=== PATIENT | female | born 1965 | race Caucasian/White ===

== ENCOUNTER → 2017-09-07 06:40 | Outpatient (CLI) | payer MEDICAID, SELFPAY ==
--- NOTE | 2017-09-07 06:43 | NM_ITS ---
CARDIOLITE SPECT MYOCARDIAL PERFUSION SCAN, REST AND STRESS: EXERCISE STRESS [facility] REVIEW QGS EF AND WALL MOTION EVALUATION: QPS - PERFUSION EVALUATION HISTORY: HTN, Tobacco use DOSE: 10.55 mCi technetium 99m mibi intravenously at rest followed by 32.6 mCi technetium 99m mibi following the intravenous ministration of 0.4 mg of Lexiscan. Resting blood pressure is 101/54. Stress blood pressure 110/56. FINDINGS: Ejection fraction is calculated to be 76%. Stress images reveal severely decreased activity in the anterior wall and septum while rest images reveal moderate to severely decreased activity in the anterior septum. Gated images calculated ejection fraction is 76% with normal wall motion. IMPRESSION: Clinical correlation is advised. It is possible this test is consistent with breast attenuation. There is a significant impressive anterior defect which is worse with stress and does improve with rest also suggesting some degree of anterior ischemia. Normal ejection fraction normal wall motion
--- NOTE | 2017-09-07 06:54 | CA_ITS ---
PROCEDURE: 2-D M-mode and color Doppler study INDICATIONS FOR THE TEST: Chest pain COPDX Heart Murmur Tobacco SmokingX Palpitations Fatigue Syncope Edema Hypertension Diabetes Mellitus Rheumatic Fever SOBXDOE ObesityXHyperlipidemia Family History HD Additional History PATIENT INFORMATION HEIGHT: 61 WEIGHT:198 GENDER: Female B/P:101/54 2-D/M-MODE INTERPRETATION: 2-D MEASUREMENTS OBSERVED VALUES IN CMS Right Ventricular Dimension (RVDd) 2.2 Interventricular Septum (Thickness)(IVsd) .9 Left Ventricular Internal Dimensions(LVIDd) 4.6 Left Ventricular Posterior Wall (Thickness)(LVPWd) .9 Aortic Root 2.9 Aortic Cusp Separation 1.6 Left Atrial Dimensions (LAD) 3.2 2D 1. Left atrium is mildly enlarged, left ventricle is normal size, there is no concentric left ventricular hypertrophy, visually estimated ejection fraction 55% with no obvious regional wall motion abnormality. 2. The right atrium and right ventricle are mildly enlarged with normal contractility. 3. The aortic valve is minimally thickened and fibrosed. 4. The mitral and tricuspid valve are grossly normal. 5. The pulmonic valve is poorly visualized. 6. No significant pericardial effusion noted. DOPPLER INTERROGATION: Doppler interrogation of the aortic, mitral and tricuspid valvular presence of mild mitral and tricuspid regurgitation, tricuspid and jet velocity insufficient for calculation of the right ventricular systolic pressure, diastolic parameters are within normal range. CONCLUSION: 1. Mildly enlarged left atrium, normal left ventricular size, visually estimated ejection fraction 55% with no obvious regional wall motion abnormality, diastolic parameters are within normal range. 2. Mildly enlarged right atrium and right ventricle, contractility of the right ventricle is normal. 3. Mild mitral and tricuspid regurgitation 4. No significant pericardial effusion noted.
--- NOTE | 2017-09-07 09:20 | HMH.ITSHM ---
trazodone pentoxifylline hydroxyzine paroxetine asa lisinopril pravastatin amtriptylin metoprolol
[2017-09-07 15:12] LABS: Amphetamine/Metha Screen,Urine Negative ng/mL (<1000); Barbiturates Screen,Urine Negative ng/mL (<200); Benzodiazepines Screen,Urine Negative ng/mL (200); Cannabinoid Screen,Urine Positive ng/mL (<50); Cocaine Screen,Urine Negative ng/g (<300); Methadone Screen,Urine Negative ng/mL (<300); Opiate Screen,Urine Negative ng/mL (<300); Phencyclidine Screen,Urine Negative ng/mL (<25)
== END ==
PROVIDERS: Family Provider Emergency Medicine; PCP Nurse Practitioner Family; Visit Provider Internal Medicine Cardiovascular Disease
DX: I73.9 Peripheral vascular disease, unspecified (principal); R06.09 Other forms of dyspnea; F17.200 Nicotine dependence, unspecified, uncomplicated
CPT/HCPCS: 78452; 80305; 93017; 93306; A9502; J2785

== ENCOUNTER → 2017-09-07 14:24 | Outpatient (CLI) | payer MEDICAID, SELFPAY | PROVIDERS: Visit Provider Nurse Practitioner Family | DX: Y99.9 Unspecified external cause status (principal) | CPT/HCPCS: 80305 ==

== ENCOUNTER 2017-10-12 07:23 | Day surgery (SDC) | payer MEDICAID, SELFPAY ==
[2017-10-12] VITALS (12 sets, daily range): BP systolic 81–105; BP diastolic 45–66; PULSE 62–85; RESP 16–18; TEMP 36.6; O2SAT 92–97; BMI 37.5
--- NOTE | 2017-10-12 | IR_ITS ---
CARDIAC CATHETERIZATION DATE OF CATHETERIZATION:10/12/2017 9:08 AM PROCEDURES: 1. Left heart catheterization 2. Left ventriculogram 3. Selective coronary angiogram INDICATION FOR TEST: 1. Abnormal Myoview anterior ischemia 2. Risk factors for coronary artery disease 3. Angina pectoris class III and IV Informed consent was obtained prior to the procedure. COMPLICATIONS: None ESTIMATED BLOOD LOSS: Less than 10 ml. TECHNIQUE: One percent lidocaine used to anesthetize the right anterior aspect of the wrist. The right radial artery was accessed via the Seldinger technique. A 6 Portuguese sheath was placed in the right radial artery. 2.5 mg of verapamil, 800 mcg of nitroglycerin and 5000 U Heparin were given through the arterial sheath. The trap catheter was also used to perform left heart catheterization and left ventriculography. At the end of the procedure the patient was transferred to the post-op holding area in stable condition for arterial sheath removal. ANGIOGRAPHIC RESULTS: 1. The left main artery normal 2. The left anterior descending artery is proximally normal. There is a distal 70% concentric stenosis at a 2.25 mm segment approximately 3 cm prior to the LAD wrapping the apex. 3. The circumflex artery is nondominant yet still a large system which gives rise to a moderate sized ramus intermedius which has mid vessel 40% stenoses. The circumflex artery has 30 and 40% stenoses in a large joint half millimeter second obtuse marginal artery 4. The right coronary artery is a dominant vessel and has long proximal to mid vessel 30% stenoses with a distal mostly concentric 50% stenosis followed by an additional distal 50% stenosis 5. The SINGER ventriculogram reveals normal 65% 6. The left ventricular end-diastolic pressure 15 mmHg IMPRESSION: 1. 70% stenosis in the distal 25% of the LAD 2. 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 Normal ejection fraction with mildly elevated LVEDP PLAN: 1. Patient continues to smoke and is strongly recommended she discontinue all tobacco exposure 2. LDL less than 55 3. Maximize antianginal medications. 4. I am very hesitant to stent the distal LAD given her young age and prior to her being maximize antianginal medications. The patient continues to have recalcitrant angina after tobacco cessation and maximizing her antianginal medications we can then consider stenting the distal LAD. 5. Weight-loss with aggressive risk factor modification 6. Physical therapy
[2017-10-12 08:06] LABS: Basophils # 0.1 K/mm3 (0-0.2); Basophils % 0.7 % (0.1-2.0); Eosinophils # 0.5 K/mm3 (0.0-0.4); Eosinophils % 3.9 % (0.1-12.0); Hemoglobin 14.5 g/dL (12.2-16.2); Lymphocytes # 3.4 K/mm3 (0.7-4.5); Lymphocytes % 26.3 K/mm3 (10-50); Mean Corpuscular Hemoglobin 31.8 pg (27.0-31.2); Mean Corpuscular Volume 96.4 fl (81-99); Mean Platelet Volume 8.5 fl (7.4-10.4); Monocytes # 0.6 K/mm3 (0.1-1.0); Monocytes % 4.8 % (1.7-9.3); Neutrophils # 8.4 K/mm3 (1.8-7.8); Neutrophils % 64.4 % (37.0-80.0); Platelet Count 370 K/mm3 (142-424); Red Blood Count 4.56 M/mm3 (4.20-5.40); Red Cell Distribution Width 13.3 % (11.5-17.5)
[2017-10-12 08:07] LABS: Anion Gap 11.8 mEq/L (5-15); Blood Urea Nitrogen 32 mg/dL (7-18); Carbon Dioxide 28 mmol/L (21.0-32.0); Chloride 104 mmol/L (98-107); Creatinine Clearance Estimated 58 mL/min (0-300); Creatinine,Serum 1.68 mg/dL (0.55-1.02); Estimated Glomerular Filt Rate 32 ml/min (>60); GFR (African American) 39 ML/MIN (>60); Glucose 92 mg/dL (74-106); Potassium 3.8 mmoL/L (3.5-5.1); Sodium 140 mmol/L (136-145)
== END 2017-10-12 12:45 | disposition home or self-care (01) ==
LOC: CATHLAB 07:23
PROVIDERS: Family Provider Emergency Medicine; PCP Nurse Practitioner Family; Visit Provider Internal Medicine
DX: I25.110 Atherosclerotic heart disease of native coronary artery with unstable angina pectoris; R94.30 Abnormal result of cardiovascular function study, unspecified; Z72.0 Tobacco use; I10 Essential (primary) hypertension; J44.9 Chronic obstructive pulmonary disease, unspecified
CPT/HCPCS: 80048; 85025; 93458; 99152; C1725; C1769; J1644; Q9967

== ENCOUNTER → 2017-10-19 13:53 | Outpatient (CLI) | payer MEDICAID, SELFPAY ==
[2017-10-19 15:14] LABS: Amphetamine/Metha Screen,Urine Negative ng/mL (<1000); Barbiturates Screen,Urine Negative ng/mL (<200); Benzodiazepines Screen,Urine Negative ng/mL (200); Cannabinoid Screen,Urine Positive ng/mL (<50); Cocaine Screen,Urine Negative ng/g (<300); Methadone Screen,Urine Negative ng/mL (<300); Opiate Screen,Urine Negative ng/mL (<300); Phencyclidine Screen,Urine Negative ng/mL (<25)
== END ==
PROVIDERS: Visit Provider Nurse Practitioner Family
DX: Z79.899 Other long term (current) drug therapy (principal)
CPT/HCPCS: 80305

== ENCOUNTER → 2017-12-01 11:18 | Outpatient (CLI) | payer MEDICAID, SELFPAY ==
[2017-12-01 19:48] LABS: Amphetamine/Metha Screen,Urine Negative ng/mL (<1000); Barbiturates Screen,Urine Negative ng/mL (<200); Benzodiazepines Screen,Urine Negative ng/mL (200); Cannabinoid Screen,Urine Positive ng/mL (<50); Cocaine Screen,Urine Negative ng/g (<300); Methadone Screen,Urine Negative ng/mL (<300); Opiate Screen,Urine Negative ng/mL (<300); Phencyclidine Screen,Urine Negative ng/mL (<25)
== END ==
PROVIDERS: Visit Provider Nurse Practitioner Family
DX: Z79.899 Other long term (current) drug therapy (principal)
CPT/HCPCS: 80305

== ENCOUNTER → 2018-12-11 14:08 | Outpatient (CLI) | payer MEDICAID, SELFPAY ==
--- NOTE | 2018-12-11 14:10 | US_ITS ---
US Arterial Ankle Brachial Ind History: ITS.REASON: claudication, pain, claudication, current smoker ORDERING PHYSICIAN: Fransisco Borja MD PATIENT AGE: 53 years TECHNIQUE: Segmental pressures obtained of both right and left leg. These are compared to brachial blood pressure to yield index at each level sampled including summary BHUPENDRA. The data sheets from the procedure are available in PACS FINDINGS Rest study only performed today No prior studies available for comparison. Blood pressures reported are in millimeters mercury. RIGHT LEG BHUPENDRA = 1.0. RIGHT LEG TBI=.8 Brachial BP: 114 Thigh BP: 117 Calf BP: 107 Ankle PT: 116 Ankle DP : 108 Digit =89 LEFT LEG BHUPENDRA = .7 LEFT LEG TBI= .4 Brachial BPD: 104 Thigh BP: 69 Calf BP: 61 Ankle PT:76 Ankle DP: 70 Digit = 49 Pulses and waveforms: Diminished waveforms and pulses on the left IMPRESSION: The ABIs as reported above on the right are within normal limits. Low left BHUPENDRA of 0.7 suggesting moderate arterial disease. There is moderate drop in pressure within the left thigh. This would suggest a stenosis of either the iliac, common femoral, or superficial femoral arteries. CT angiogram may confirm.
== END ==
PROVIDERS: PCP Emergency Medicine; Visit Provider Emergency Medicine
DX: I73.9 Peripheral vascular disease, unspecified (principal)
CPT/HCPCS: 93922

== ENCOUNTER → 2022-10-28 11:00 | Outpatient (CLI) | payer MEDICAID, SELFPAY ==
[2022-10-28 13:20] LABS: Chloride 106 mmol/L (98-107)
[2022-10-28 13:21] LABS: Basophils # 0.1 K/mm3 (0-0.2); Basophils % 0.8 % (0.1-2.0); Eosinophils # 0.4 K/mm3 (0.0-0.4); Eosinophils % 3.1 % (0.1-12.0); Hematocrit 44.2 % (37.0-47.0); Hemoglobin 14.4 g/dL (12.2-16.2); Lymphocytes # 3.7 K/mm3 (0.7-4.5); Lymphocytes % 32.7 % (10-50); Mean Corpuscular HGB Conc 32.6 g/dL (31.8-35.4); Mean Corpuscular Hemoglobin 31.4 pg (27.0-31.2); Mean Corpuscular Volume 96.2 fl (81-99); Mean Platelet Volume 8.8 fl (7.4-10.4); Monocytes # 0.6 K/mm3 (0.1-1.0); Monocytes % 5.5 % (1.7-9.3); Neutrophils # 6.4 K/mm3 (1.8-7.8); Neutrophils % 57.8 % (37.0-80.0); Platelet Count 344 K/mm3 (142-424); Potassium 4.4 mmoL/L (3.5-5.1); Red Cell Distribution Width 13.8 % (11.5-17.5); Sodium 138 mmol/L (136-145); White Blood Count 11.1 K/mm3 (4.8-10.8)
[2022-10-28 13:23] LABS: Alanine Aminotransferase 19 U/L (12-78); Albumin Level 4.1 g/dl (3.5-5.0); Albumin/Globulin Ratio 1.6 (1.1-1.8); Alkaline Phosphatase 112 U/L (38-126); Aspartate Amino Transferase 28 U/L (14-36); Bilirubin,Total 0.3 mg/dl (0.2-1.3); Blood Urea Nitrogen 11 mg/dl (7-17); Estimated Glomerular Filt Rate 74 ml/min (>60); GFR (African American) 89 ML/MIN (>60); Globulin 2.6 g/dL (1.3-3.2); Total Protein,Serum 6.7 g/dl (6.3-8.2)
[2022-10-28 13:24] LABS: Calcium 8.8 mg/dl (8.4-10.2); Chol/HDL Ratio 7.6 (1-3.5); Cholesterol 167 mg/dl (140-200); Glucose 77 mg/dl (74-100); HDL Cholesterol 22 mg/dl (40-60); Triglycerides 413 mg/dl (30-150)
[2022-10-28 13:35] LABS: Amphetamine/Metha Screen,Urine Negative ng/ml (<1000); Benzodiazepines Screen,Urine Negative ng/ml (<200)
[2022-10-28 13:36] LABS: Barbiturates Screen,Urine Negative ng/ml (<200)
[2022-10-28 13:37] LABS: Cannabinoid Screen,Urine Positive ng/ml (<50); Cocaine Screen,Urine Negative ng/ml (<300)
[2022-10-28 13:38] LABS: Methadone Screen,Urine Negative ng/ml (<300); Opiate Screen,Urine Negative ng/ml (<300)
[2022-10-28 13:39] LABS: Phencyclidine Screen,Urine Negative ng/ml (<25)
[2022-10-28 13:41] LABS: 25-OH Vitamin D, Total < 12.8 ng/mL (30-100)
[2022-10-28 14:03] LABS: Hemoglobin A1C 5.3 % (4.0-6.0)
[2022-10-28 14:52] LABS: Anion Gap 11.4 mEq/L (5-15); Carbon Dioxide 25 mmol/L (22.0-30.0)
== END ==
PROVIDERS: PCP Nurse Practitioner Family; Visit Provider Nurse Practitioner Family
DX: R53.83 Other fatigue (principal); E11.9 Type 2 diabetes mellitus without complications; E55.9 Vitamin D deficiency, unspecified; Z79.899 Other long term (current) drug therapy
CPT/HCPCS: 80053; 80061; 80305; 82306; 83036; 84443; 85025

== ENCOUNTER → 2022-10-28 13:38 | Outpatient (CLI) | payer MEDICAID, SELFPAY | PROVIDERS: PCP Nurse Practitioner Family; Visit Provider Nurse Practitioner Family | DX: E11.9 Type 2 diabetes mellitus without complications (principal) ==

== ENCOUNTER 2023-08-03 21:40 | Outpatient (CLI) | payer OTHER, SELFPAY ==
[2023-08-03 18:49] LABS: Basophils # 0.1 K/mm3 (0-0.2); Basophils % 1.7 % (0.1-2.0); Eosinophils # 0.3 K/mm3 (0.0-0.4); Eosinophils % 3.6 % (0.1-12.0); Hematocrit 48.9 % (37.0-47.0); Lymphocytes # 2.8 K/mm3 (0.7-4.5); Lymphocytes % 35.7 % (10-50); Mean Corpuscular HGB Conc 32.7 g/dL (31.8-35.4); Mean Corpuscular Hemoglobin 32.2 pg (27.0-31.2); Mean Corpuscular Volume 98.7 fl (81-99); Mean Platelet Volume 9.9 fl (7.4-10.4); Monocytes # 0.5 K/mm3 (0.1-1.0); Monocytes % 5.9 % (1.7-9.3); Neutrophils # 4.2 K/mm3 (1.8-7.8); Neutrophils % 53.1 % (37.0-80.0); Platelet Count 306 K/mm3 (142-424); Red Blood Count 4.95 M/mm3 (4.20-5.40); Red Cell Distribution Width 13.4 % (11.5-17.5); White Blood Count 7.9 K/mm3 (4.8-10.8)
[2023-08-03 19:22] LABS: Chloride 106 mmol/L (98-107); Potassium 4.7 mmoL/L (3.5-5.1); Sodium 139 mmol/L (136-145)
[2023-08-03 19:24] LABS: Alanine Aminotransferase 26 U/L (12-78); Aspartate Amino Transferase 34 U/L (14-36); Blood Urea Nitrogen 13 mg/dl (7-17); Estimated Glomerular Filt Rate 86 ml/min (>60); GFR (African American) 104 ML/MIN (>60)
[2023-08-03 19:25] LABS: Albumin Level 4.3 g/dl (3.5-5.0); Albumin/Globulin Ratio 1.5 (1.1-1.8); Alkaline Phosphatase 129 U/L (38-126); Anion Gap 12.7 mEq/L (5-15); Bilirubin,Total 0.4 mg/dl (0.2-1.3); Calcium 9.2 mg/dl (8.4-10.2); Carbon Dioxide 25 mmol/L (22.0-30.0); Cholesterol 266 mg/dl (140-200); Globulin 2.8 g/dL (1.3-3.2); Glucose 80 mg/dl (74-100); Total Protein,Serum 7.1 g/dl (6.3-8.2)
[2023-08-03 19:26] LABS: Chol/HDL Ratio 9.9 (1-3.5); HDL Cholesterol 27 mg/dl (40-60)
[2023-08-03 19:28] LABS: Triglycerides 426 mg/dl (30-150)
[2023-08-03 19:37] LABS: Direct LDL Cholesterol 151.16 mg/dL (100-129)
[2023-08-03 19:55] LABS: Hemoglobin A1C 5.3 % (4.0-6.0)
[2023-08-03 20:05] LABS: 25-OH Vitamin D, Total < 12.8 ng/mL (30-100)
[2023-08-03 20:14] LABS: Thyroid Stimulating Hormone 1.07 uIU/mL (0.465-4.68)
[2023-08-03 20:33] LABS: Vitamin B12 285 pg/mL (239-931)
[2023-08-03 21:00] LABS: Amphetamine/Metha Screen,Urine Negative ng/ml (<1000); Barbiturates Screen,Urine Negative ng/ml (<200)
[2023-08-03 21:01] LABS: Benzodiazepines Screen,Urine Negative ng/ml (<200); Cannabinoid Screen,Urine Positive ng/ml (<50)
[2023-08-03 21:02] LABS: Cocaine Screen,Urine Negative ng/ml (<300)
[2023-08-03 21:03] LABS: Methadone Screen,Urine Negative ng/ml (<300); Opiate Screen,Urine Negative ng/ml (<300)
[2023-08-03 21:04] LABS: Phencyclidine Screen,Urine Negative ng/ml (<25)
== END 2023-08-03 23:59 ==
PROVIDERS: PCP Family Medicine; Visit Provider Family Medicine
DX: G56.03 Carpal tunnel syndrome, bilateral upper limbs (principal); G62.9 Polyneuropathy, unspecified; I25.10 Atherosclerotic heart disease of native coronary artery without angina pectoris; I10 Essential (primary) hypertension; E78.5 Hyperlipidemia, unspecified; E55.9 Vitamin D deficiency, unspecified; E66.9 Obesity, unspecified; Z68.41 Body mass index [BMI] 40.0-44.9, adult; Z79.899 Other long term (current) drug therapy
CPT/HCPCS: 80053; 80061; 80307; 82306; 82607; 83036; 84443; 85025